=== PATIENT | male | born 1955 | race Caucasian/White ===

== ENCOUNTER 2017-12-29 13:59 | Day surgery (SDC) | payer MEDICARE, BC ==
[~2017-12-29] VITALS: Ht 170.2 cm; Wt 97.3 kg
[~2017-12-29 13:59] MED LIST: ALBUTEROL0.09 MG/A1 IH; ASPIRIN E.C. 8181 MG PO; ATENOLOL50 MG PO; BACLOFEN10 MG PO; BETIMOL 0.5% OPH5 ML OP; COLACE 100100 MG/CAP PO; COZAAR 50MG50 MG/TAB PO; FLONASE NASAL S16 GM NS; HYDROCODONE/APAP; MAALOX1 TAB PO; MILK OF MA400 MG/51 PO; NAPROSYN375 MG PO; NORCO 325 MG-101 TAB PO; PERCOCET 325 MG1 TA2 PO; PERCODAN TABL1 UDTAB PO; POTASSIUM CL 220 MEQ PO; TYLENOL 325MG325 MG PO; VALIUM 10MG10 MG/TAB PO; [UNRECOGNIZED DRUG - OTHER]
[2017-12-29 14:41] VITALS: BP 145/91; PULSE 77
[2017-12-29] MEDS ORDERED: DAZIDOX10 MG PO (15:03)
[2017-12-29] MEDS ORDERED: MOBIC 7.5MG7.5 MG PO (15:03)
[2017-12-29] MEDS ORDERED: PROTONIX 40MG T40 MG PO (15:03)
[2017-12-29] MEDS ORDERED: KLOR-CON M2020 MEQ PO (15:04)
[2017-12-29] MEDS ORDERED: LIORESAL 1010 MG/TAB PO (15:04)
[2017-12-29] MEDS ORDERED: VALIUM 5MG T5 MG/TAB PO (15:05)
[2017-12-29] MEDS ORDERED: NORMODYNE200 MG PO (15:05)
[2017-12-29] MEDS ORDERED: LASIX 40MG TABL40 MG PO (15:06)
[2017-12-29] MEDS ORDERED: NEURONTIN300 MG/CAP PO (15:07)
[2017-12-29] MEDS ORDERED: VENTOLIN0.09 MG IH (15:08)
[2017-12-29] MEDS ORDERED: BETAMETHASONE D0.053 TP (15:09)
[2017-12-29 16:10] VITALS: BP 151/90; PULSE 78
[2017-12-29 16:43] VITALS: BP 126/85; PULSE 80
== END 2017-12-29 16:35 | disposition home or self-care (01) ==
LOC: SDCO 13:59
DX: D12.3 Benign neoplasm of transverse colon (principal); K57.30 Diverticulosis of large intestine without perforation or abscess without bleeding; Z95.2 Presence of prosthetic heart valve; Z88.2 Allergy status to sulfonamides; G47.33 Obstructive sleep apnea (adult) (pediatric); I38 Endocarditis, valve unspecified; Z87.891 Personal history of nicotine dependence; R20.2 Paresthesia of skin; E11.9 Type 2 diabetes mellitus without complications; Z88.8 Allergy status to other drugs, medicaments and biological substances; I25.10 Atherosclerotic heart disease of native coronary artery without angina pectoris; I11.0 Hypertensive heart disease with heart failure; I50.9 Heart failure, unspecified; I35.1 Nonrheumatic aortic (valve) insufficiency; K58.9 Irritable bowel syndrome, unspecified; E78.00 Pure hypercholesterolemia, unspecified; G80.9 Cerebral palsy, unspecified; Z80.0 Family history of malignant neoplasm of digestive organs; K21.9 Gastro-esophageal reflux disease without esophagitis; G89.29 Other chronic pain; M79.7 Fibromyalgia; J44.9 Chronic obstructive pulmonary disease, unspecified
CPT/HCPCS: J2250; J2704; J3010; J7120